=== PATIENT | female | born 1955 | race Caucasian/White ===

== ENCOUNTER 2020-12-26 12:24 | Inpatient (IN) ==
[2020-12-26] MEDS ORDERED: DEXAMETHASONE 10 MG/ML VIAL IV ONE (12:57)
--- NOTE | 2020-12-26 13:01 | Emergency Department Note ---
SOB HPI General Chief Complaint: Shortness of Breath/Dyspnea Stated Complaint: SOB Time Seen by Provider: 12/26/20 12:34 Source: patient Mode of arrival: ambulatory Limitations: no limitations History of Present Illness HPI Narrative: Narrative: Previously healthy 65 yo F w/ recent Dx of COVID19 p/w SOB. She reports that she fell ill around the first of the month and since then has had constant SOB, which is worsened by exertion, relieved by rest, but has steadily progressed. Today she comes in because her home O2 monitor was reading low. She also notes a dry cough, fever, chills, malaise, loss of taste. She was seen here previously this month w/ a Dx of COVID19. Related Data Home Medications Medication Instructions Recorded Confirmed No Known Home Meds 12/26/20 12/26/20 Allergies Allergy/AdvReac Type Severity Reaction Status Date / Time Penicillins Allergy Intermediate Hives Verified 12/26/20 12:27 Review of Systems ROS ROS Narrative: Narrative: All systems ED: reviewed and negative except as stated. [facility] Narrative Patient History Narrative: Narrative: Medical/Surgical/Family History All Active Problems (Updated 12/26/20 @ 15:55 by Ollie Newton MD) Acute respiratory failure with hypoxia (Acute) COVID-19 (Acute) Acute dyspnea (Acute) Pneumonia due to 2019 novel coronavirus (Acute) Social History Smoking Status: Never smoker Alcohol Intake Frequency: does not drink Substance Use: does not use Exam Narrative Narrative: Narrative: General Limitations: no limitations General appearance: Present alert and in no apparent distress Head Head: Present atraumatic and normocephalic ENT ENT: Present normal oropharynx and mucous membranes moist Chest Chest: Present normal inspection and symmetric chest wall rise Respiratory Respiratory: Present normal lung sounds bilaterally; Absent respiratory distress, rales/crackles, wheezes and stridor Cardiovascular Cardiovascular: Present regular rate, normal rhythm, +S1, +S2 and other (2+ B/L radial pulses); Absent systolic murmur and diastolic murmur Adbominal Abdominal: Present soft and normal bowel sounds; Absent distention and tenderness Extremities Extremities: Absent pedal edema Neurological Neurological: Present alert and oriented X3 Psychiatric Psychiatric: Present normal affect Skin Skin: Present warm (WNL) and dry Course Vital Signs Vital signs: Vital Signs Temperature 98.9 F 12/26/20 12:24 Pulse Rate 103 H 12/26/20 12:24 Respiratory Rate 20 12/26/20 12:24 Blood Pressure 122/75 12/26/20 12:24 Pulse Oximetry (%) 89 L 12/26/20 12:24 Temperature 98.4 F 12/26/20 16:24 Pulse Rate 94 H 12/26/20 16:24 Respiratory Rate 20 12/26/20 16:24 Blood Pressure 125/80 12/26/20 16:24 Pulse Oximetry (%) 94 12/26/20 16:24 MDM MDM Narrative Medical decision making narrative: Narrative: 65 yo F w/ recent Dx of COVID19 p/w ongoing SOB. DDX - COVID19, ARDS, PE, EDISON Pt presented w/ hypoxia, w/ RA sats in the 80s. Her COVID swab was already positive. CXR confirmed COVID19 PNA, and there was no evidence from XR and blood gas of ARDS. PE was also unlikely w/ no acute worsening and good response to NC. EDISON was not present on CMP. Overall evaluation was c/w hypoxia d/t COVID19 PNA. I started her on decadron in addition to NC, and she was accepted for admission by the hospitalist. Lab Data Result diagrams: 12/26/20 13:12 12/26/20 13:12 Labs: Lab Results 12/26/20 12/26/20 12/26/20 Range/Units 12:58 12:58 13:12 WBC 2.7 L (4.5-11.0) K/mcL RBC 4.10 (3.59-5.38) M/mcL Hgb 12.1 (11.2-15.7) g/dL Hct 36.4 (34.1-44.9) % MCV 88.8 (80.0-100.0) fL MCH 29.5 (26.0-34.0) pg MCHC 33.2 (31.0-36.0) g/dL RDW 12.4 (11.5-14.5) % Plt Count 246 (140-440) K/mcL MPV 9.6 (7.4-10.4) fL Neut % (Auto) 68.2 (38.0-78.0) % Lymph % (Auto) 24.1 (15.5-49.0) % [place] % (Auto) 7.3 (1.0-12.0) % Eos % (Auto) 0 (0.0-7.0) % Baso % (Auto) 0.4 (0.0-2.0) % Lymph # (Auto) 0.66 L (1.50-4.80) K/mcL [place] # (Auto) 0.20 (0.10-0.90) K/mcL Eos # (Auto) 0 (0.00-0.70) K/mcL Baso # (Auto) 0.01 (0.00-0.30) K/mcL Absolute Neutrophils 1.87 (1.80-8.00) K/mcL PT 13.1 (11.9-14.5) sec INR 1.0 (0.9-1.1) Fibrinogen 458 H (200-400) mg/dL D-Dimer 0.87 H (0.27-0.50) ug/mL ABG Methemoglobin (0.4-1.5) % VBG pH (7.32-7.42) U VBG pCO2 (41.0-51.0) mmHg VBG pO2 (25.0-40.0) mmHg VBG HCO3 (24.0-28.0) mmol/L VBG Total CO2 (25.0-29.0) mmol/L VBG O2 Saturation (40.0-70.0) % VBG Base Excess (-2-2) Carboxyhemoglobin (0.0-1.5) % THgb Total Hemoglobin (12.0-15.0) gm/Dl Sodium (133-145) mmol/L Potassium (3.3-5.1) mmol/L Chloride (96-108) mmol/L Carbon Dioxide (22-30) mmol/L Anion Gap (8.0-16.0) BUN (8-23) mg/dL Creatinine (0.6-1.1) mg/dL GFR Calculation Glucose (70-105) mg/dL Calcium (8.6-10.4) mg/dL Total Bilirubin (0.1-1.0) mg/dL AST (<32) U/L ALT (<40) U/L Alkaline Phosphatase (39-117) U/L Lactate Dehydrogenase 392 H (135-225) U/L C-Reactive Protein 1.20 H (0.03-0.80) mg/dL Total Protein (5.9-8.4) gm/dL Albumin (3.2-5.2) gm/dL Globulin (2.2-3.7) gm/dL Albumin/Globulin Ratio (1.0-2.3) 12/26/20 12/26/20 Range/Units 13:12 13:12 WBC (4.5-11.0) K/mcL RBC (3.59-5.38) M/mcL Hgb (11.2-15.7) g/dL Hct (34.1-44.9) % MCV (80.0-100.0) fL MCH (26.0-34.0) pg MCHC (31.0-36.0) g/dL RDW (11.5-14.5) % Plt Count (140-440) K/mcL MPV (7.4-10.4) fL Neut % (Auto) (38.0-78.0) % Lymph % (Auto) (15.5-49.0) % [place] % (Auto) (1.0-12.0) % Eos % (Auto) (0.0-7.0) % Baso % (Auto) (0.0-2.0) % Lymph # (Auto) (1.50-4.80) K/mcL [place] # (Auto) (0.10-0.90) K/mcL Eos # (Auto) (0.00-0.70) K/mcL Baso # (Auto) (0.00-0.30) K/mcL Absolute Neutrophils (1.80-8.00) K/mcL PT (11.9-14.5) sec INR (0.9-1.1) Fibrinogen (200-400) mg/dL D-Dimer (0.27-0.50) ug/mL ABG Methemoglobin 0.3 L (0.4-1.5) % VBG pH 7.41 (7.32-7.42) U VBG pCO2 42.6 (41.0-51.0) mmHg VBG pO2 32.5 (25.0-40.0) mmHg VBG HCO3 26.3 (24.0-28.0) mmol/L VBG Total CO2 27.6 (25.0-29.0) mmol/L VBG O2 Saturation 55.6 (40.0-70.0) % VBG Base Excess 1 (-2-2) Carboxyhemoglobin 6.1 H (0.0-1.5) % THgb Total Hemoglobin 12.1 (12.0-15.0) gm/Dl Sodium 132 L (133-145) mmol/L Potassium 3.6 (3.3-5.1) mmol/L Chloride 96 (96-108) mmol/L Carbon Dioxide 25 (22-30) mmol/L Anion Gap 11.0 (8.0-16.0) BUN 7 L (8-23) mg/dL Creatinine 0.9 (0.6-1.1) mg/dL GFR Calculation 67 Glucose 120 H (70-105) mg/dL Calcium 8.3 L (8.6-10.4) mg/dL Total Bilirubin 0.5 (0.1-1.0) mg/dL AST 69 H (<32) U/L ALT 50 H (<40) U/L Alkaline Phosphatase 55 (39-117) U/L Lactate Dehydrogenase (135-225) U/L C-Reactive Protein (0.03-0.80) mg/dL Total Protein 6.6 (5.9-8.4) gm/dL Albumin 3.8 (3.2-5.2) gm/dL Globulin 2.8 (2.2-3.7) gm/dL Albumin/Globulin Ratio 1.4 (1.0-2.3) EKG Data EKG #1: EKG attestation: Yes I reviewed and interpreted this EKG. and Yes There are no EKG findings of acute coronary syndrome EKG results narrative: Sinus rate of 84, normal NV, QRS, QT/QTc intervals. No STEMI. No previous EKG for comparison. Discharge Plan Patient/Caregiver Discharge Instructions Pt seen by [facility]/PA only: No Clinical Impression: Acute dyspnea, Pneumonia due to 2019 novel coronavirus Patient Disposition: Xfer As Inpt ([facility]) Condition: Fair Discharge Date/Time: 12/26/20 16:20
--- NOTE | 2020-12-26 13:22 | XRay Report ---
INDICATION: chest pain TECHNIQUE: AP upright chest x-ray COMPARISON: None FINDINGS: Lungs:There are bilateral pulmonary parenchymal infiltrates. These are interstitial in appearance. Appearance is consistent with atypical pneumonia and covid pneumonia should be considered. Correlation and follow-up radiographs recommended Heart, vascular:No significant cardiomegaly. Pulmonary vascularity is normal. No pulmonary edema or pulmonary congestion Mediastinum, za:No mediastinal widening. No hilar mass Pleura:No pleural fluid. No pleural-based mass or calcification Skeletal:Negative. IMPRESSION: 1. Bilateral pulmonary parenchymal infiltrates consistent with pneumonia 2. Covid pneumonia is likely Interpreted and Authenticated by: Kirk Ingram 12/26/20
[2020-12-26 13:49] LABS: ABG Methemoglobin 0.3 % (0.4-1.5); Total Hemoglobin 12.1 gm/Dl (12.0-15.0); VBG Base Excess 1 (-2-2); VBG HCO3 26.3 mmol/L (24.0-28.0); VBG Oxygen Saturation 55.6 % (40.0-70.0); VBG PCO2 42.6 mmHg (41.0-51.0); VBG PH 7.41 U (7.32-7.42); VBG PO2 32.5 mmHg (25.0-40.0); VBG Total CO2 27.6 mmol/L (25.0-29.0)
[2020-12-26 13:56] LABS: Basophils # (Auto) 0.01 K/mcL (0.00-0.30); Basophils % (Auto) 0.4 % (0.0-2.0); Eosinophils # (Auto) 0 K/mcL (0.00-0.70); Eosinophils % (Auto) 0 % (0.0-7.0); Hematocrit 36.4 % (34.1-44.9); Hemoglobin 12.1 g/dL (11.2-15.7); Lymphocytes # (Auto) 0.66 K/mcL (1.50-4.80); Lymphocytes % (Auto) 24.1 % (15.5-49.0); Mean Cell Volume 88.8 fL (80.0-100.0); Mean Corpuscular HGB Conc 33.2 g/dL (31.0-36.0); Mean Platelet Volume 9.6 fL (7.4-10.4); Monocytes % (Auto) 7.3 % (1.0-12.0); Neutrophils % (Auto) 68.2 % (38.0-78.0); Platelet Count 246 K/mcL (140-440); Red Cell Distribution Width 12.4 % (11.5-14.5); WBC 2.7 K/mcL (4.5-11.0)
[2020-12-26 14:15] LABS: ALT/SGPT 50 U/L (<40); AST/SGOT 69 U/L (<32); Albumin 3.8 gm/dL (3.2-5.2); Albumin/Globulin Ratio 1.4 (1.0-2.3); Alkaline Phosphatase 55 U/L (39-117); Bilirubin,Total 0.5 mg/dL (0.1-1.0); Blood Urea Nitrogen 7 mg/dL (8-23); Calcium 8.3 mg/dL (8.6-10.4); Carbon Dioxide 25 mmol/L (22-30); Chloride 96 mmol/L (96-108); Globulin 2.8 gm/dL (2.2-3.7); Glomerular Filtration Rate 67; Glucose 120 mg/dL (70-105)
--- NOTE | 2020-12-26 15:51 | Internal Med History&Physical ---
HPI History of Present Illness Patient information: Note initiated : 12/26/20 at 3:47 pm Service Date, if different from initiated Date: [] Patient: Kaivta Bowman a 65 y/o F admitted on for Shortness of breath. Chief Complaint: [CoVID pneumonia] History of present illness: Ms. Bowman is a 65 year old F no past medical history presenting with 11 days symptoms of shortness of breath, nonproductive cough, general body weakness. There was no prior similar episode. She denies any recent travel or sick contact. She is not vaccinated against Covid pneumonia. She first started having symptoms of shortness of breath, nonproductive cough, general body weakness, and shaking chills on December 16, 2020. She denies any fever or diaphoresis. She denies any respiratory wheezing or chest pain. She denies any GI symptoms such as nausea vomiting diarrhea or constipation's. She denies any muscle aches. She denies any change in her appetite. She was tested positive for Covid pneumonia on December 21, 2020. She presented to our ED today due to worsening of her symptomatologies. Vital signs significant for tachypnea with rate of breathing in the mid 20s, as well as oxygen desaturating to the mid to high 80s on room air. Labs significant for leukopenia with WBC 2.7. Serum sodium level mildly depressed at 132. Chest x-ray showing bilateral pulmonary infiltrates typical for Covid pneumonia. Constitutional Constitutional: Present chills and weakness; Absent excessive sweating, fatigue and fever(s) EENT Eyes: Absent blurry vision, change in vision, loss of vision and other visual disturbances Ears: Absent decreased hearing and tinnitus Nose, mouth and throat: Absent abnormal hearing, dry mouth, headache(s), nasal congestion and sore throat Cardiovascular Cardiovascular: Absent chest pain, chest pain at rest, edema, irregular heart rhythm and palpatations Respiratory Respiratory: Present cough and dyspnea; Absent wheezing Gastrointestinal Gastrointestinal: Absent abdominal pain, constipation, diarrhea, nausea and vomiting Musculoskeletal Musculoskeletal: Absent back pain, deformity, limited range of motion, muscle cramps, muscle weakness and numbness Integumentary Integumentary: Absent lesions, rash and wounds Neurological Neurological: Absent focal weakness, headache(s) and numbness Psychiatric Psychiatric: Absent anxiety, depression and hallucinations PFSH PFSH All Active Problems (Updated 12/26/20 @ 15:55 by Ollie Newton MD) Acute respiratory failure with hypoxia (Acute) COVID-19 (Acute) Acute dyspnea (Acute) Pneumonia due to 2019 novel coronavirus (Acute) Social History alcohol intake frequency: does not drink substance use type: does not use MEDS/ALLERGIES Home Medications and Allergies Home Medications Medication Instructions Recorded Confirmed Type No Known Home Meds 12/26/20 12/26/20 History Allergies Allergy/AdvReac Type Severity Reaction Status Date / Time Penicillins Allergy Intermediate Hives Verified 12/26/20 12:27 EXAM Constitutional Vitals: Temp Pulse Resp BP Pulse Ox 37.2 C 87 23 H 118/66 92 12/26/20 12:24 12/26/20 15:31 12/26/20 15:31 12/26/20 15:16 12/26/20 15:31 General appearance: cooperative and no acute distress Head Head exam: Present atraumatic and normocephalic Eye Eye exam: Present EOMI and PERRL ENT ENT exam: Present mucous membranes moist, normal exam and normal external ear exam Additional comments: nasal cannula Neck Neck exam: Present normal inspection; Absent lymphadenopathy, tenderness and thyromegaly Respiratory Respiratory exam: Present rhonchi; Absent accessory muscle use, respiratory distress and wheezes Cardiovascular Cardiovascular exam: Present normal rate and rhythm; Absent JVD GI/Abdominal GI/Abdominal exam: Present normal bowel sounds and soft; Absent organomegaly and tenderness Extremities Exam Extremities exam: Present full ROM, normal capillary refill and normal inspection; Absent tenderness Neurological Exam Neurological exam: Present alert, CN II-XII intact and oriented X3; Absent motor sensory deficit Psychiatric Psychiatric exam: Present normal affect and normal mood; Absent anxious and depressed Skin Skin exam: Present dry and intact DATA Data Completed and Pending Labs: Labs from last 24 hours 12/26/20 12/26/20 12/26/20 13:12 13:12 13:12 WBC 2.7 L RBC 4.10 Hgb 12.1 Hct 36.4 MCV 88.8 MCH 29.5 MCHC 33.2 RDW 12.4 Plt Count 246 MPV 9.6 Neut % (Auto) 68.2 Lymph % (Auto) 24.1 [place] % (Auto) 7.3 Eos % (Auto) 0 Baso % (Auto) 0.4 Lymph # (Auto) 0.66 L [place] # (Auto) 0.20 Eos # (Auto) 0 Baso # (Auto) 0.01 Absolute Neutrophils 1.87 ABG Methemoglobin 0.3 L VBG pH 7.41 VBG pCO2 42.6 VBG pO2 32.5 VBG HCO3 26.3 VBG Total CO2 27.6 VBG O2 Saturation 55.6 VBG Base Excess 1 Carboxyhemoglobin 6.1 H Total Hemoglobin 12.1 Sodium 132 L Potassium 3.6 Chloride 96 Carbon Dioxide 25 Anion Gap 11.0 BUN 7 L Creatinine 0.9 GFR Calculation 67 Glucose 120 H Calcium 8.3 L Total Bilirubin 0.5 AST 69 H ALT 50 H Alkaline Phosphatase 55 Total Protein 6.6 Albumin 3.8 Globulin 2.8 Albumin/Globulin Ratio 1.4 A/P Assessment and plan (1) Pneumonia due to 2019 novel coronavirus: Status: Acute (2) Acute respiratory failure with hypoxia: Status: Acute Narrative A/P Narrative: Assessment and Plans: 1. CoVID pneumonia with acute respiratory failure with hypoxia: Admit to inpatient med surg Isolation protocol: airborne and contact Supplemental oxygen titrate to achieve spo2>92% Lactic acid Inflammatory markers cbc w/ auto diff in the morning to trend WBC Tylenol PRN fever Robitussin DM PRN cough DuoNEB NEB PRN wheezing Dexamethasone Lovenox Patient refuses Remdesivir GI ppx: not currently indicated DVT ppx: Lovenox Code status: Full Prognosis: guarded Disposition: inpatient med surg telemetry Time Spent With Patient Time: Total time spent is greater than 50% in coordination of care (as documented) at patient's floor/unit and/or counseling patient: Total time spent with greater than 50% in coordination of care (as documented) at patient's floor/unit and/or counseling patient:: Greater than 35 minutes
[2020-12-26] MEDS ORDERED: IPRATROPIUM/ALBUTEROL 3 ML AMPUL.NEB NEB PRN (16:51)
[2020-12-26] MEDS ORDERED: ONDANSETRON 4 MG/2 ML VIAL IV PRN (16:51)
[2020-12-26] MEDS ORDERED: traZODone HCL 50 MG TABLET PO PRN (16:51)
[2020-12-26] MEDS ORDERED: BENZONATATE 100 MG CAPSULE PO PRN (16:56)
[2020-12-26 17:28] LABS: Lactate Dehydrogenase 392 U/L (135-225)
[2020-12-26 17:29] LABS: Prothrombin Time 13.1 sec (11.9-14.5)
--- NOTE | 2020-12-26 18:36 | EKG ---
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
[2020-12-26] MEDS: guaiFENesin/DEXTROMETHORPHAN ORAL SOL PO PRN (18:59)
[2020-12-26] MEDS: ACETAMINOPHEN 325 MG TABLET PO PRN (18:59)
[2020-12-26] MEDS: DOCUSATE SODIUM 100 MG CAPSULE PO SCH (22:57)
[2020-12-26] MEDS: 0.9 % SODIUM CHLORIDE 10 ML SYRINGE IV SCH (22:57)
[2020-12-26] MEDS: SENNOSIDES 1 TABLET PO SCH (22:57)
[2020-12-27] MEDS: ACETAMINOPHEN 325 MG TABLET PO PRN ×3 (03:00→19:44)
[2020-12-27] MEDS: guaiFENesin/DEXTROMETHORPHAN ORAL SOL PO PRN ×3 (03:00→19:45)
[2020-12-27] MEDS: 0.9 % SODIUM CHLORIDE 10 ML SYRINGE IV SCH ×2 (06:08→13:18)
[2020-12-27 06:55] LABS: Basophils # (Auto) 0.01 K/mcL (0.00-0.30); Basophils % (Auto) 0.4 % (0.0-2.0); Eosinophils # (Auto) 0 K/mcL (0.00-0.70); Eosinophils % (Auto) 0 % (0.0-7.0); Hematocrit 36.2 % (34.1-44.9); Hemoglobin 11.9 g/dL (11.2-15.7); Lymphocytes # (Auto) 0.65 K/mcL (1.50-4.80); Lymphocytes % (Auto) 23.7 % (15.5-49.0); Mean Cell Volume 89.8 fL (80.0-100.0); Mean Corpuscular HGB Conc 32.9 g/dL (31.0-36.0); Mean Platelet Volume 9.6 fL (7.4-10.4); Monocytes # (Auto) 0.27 K/mcL (0.10-0.90); Monocytes % (Auto) 9.9 % (1.0-12.0); Platelet Count 248 K/mcL (140-440); RBC 4.03 M/mcL (3.59-5.38); Red Cell Distribution Width 12.4 % (11.5-14.5); WBC 2.7 K/mcL (4.5-11.0)
[2020-12-27 07:16] LABS: ALT/SGPT 48 U/L (<40); AST/SGOT 57 U/L (<32); Albumin 3.5 gm/dL (3.2-5.2); Albumin/Globulin Ratio 1.2 (1.0-2.3); Alkaline Phosphatase 53 U/L (39-117); Bilirubin,Total 0.4 mg/dL (0.1-1.0); Blood Urea Nitrogen 12 mg/dL (8-23); Calcium 8.5 mg/dL (8.6-10.4); Carbon Dioxide 23 mmol/L (22-30); Chloride 98 mmol/L (96-108); Globulin 2.9 gm/dL (2.2-3.7); Glomerular Filtration Rate 77; Glucose 153 mg/dL (70-105)
[2020-12-27] MEDS: DOCUSATE SODIUM 100 MG CAPSULE PO SCH ×2 (08:11→19:45)
[2020-12-27] MEDS: ENOXAPARIN 40 MG/0.4 ML SYRINGE SQ SCH (08:11)
[2020-12-27] MEDS: DEXAMETHASONE 4 MG TABLET PO SCH (08:12)
--- NOTE | 2020-12-27 11:28 | Internal Med Progress Note ---
SUBJECTIVE Subjective Patient information: Note initiated : 12/27/20 at 11:25 am Service Date, if different from initiated Date: [] Patient: Kavita Bowman 65 y/o F admitted on 12/26/20 for Shortness of breath. Chief Complaint: [] Interval history: History of present illness: Ms. Bowman is a 65 year old F no past medical history presenting with 11 days symptoms of shortness of breath, nonproductive cough, general body weakness. There was no prior similar episode. She denies any recent travel or sick contact. She is not vaccinated against Covid pneumonia. She first started having symptoms of shortness of breath, nonproductive cough, general body weakness, and shaking chills on December 16, 2020. She denies any fever or diaphoresis. She denies any respiratory wheezing or chest pain. She denies any GI symptoms such as nausea vomiting diarrhea or constipation's. She denies any muscle aches. She denies any change in her appetite. She was tested positive for Covid pneumonia on December 21, 2020. She presented to our ED today due to worsening of her symptomatologies. Vital signs significant for tachypnea with rate of breathing in the mid 20s, as well as oxygen desaturating to the mid to high 80s on room air. Labs significant for leukopenia with WBC 2.7. Serum sodium level mildly depressed at 132. Chest x-ray showing bilateral pulmonary infiltrates typical for Covid pneumonia. 12/27: Afebrile overnight. Currently on 3L/min oxygen. Tolerating proning. c/o mild SOB. c/o nonproductive cough. Denies wheezing. Denies chest pain. c/o diaphoresis. Denies fever or chills. c/o general body weakness. Constitutional Vitals: Vital Signs Temp Pulse Resp BP Pulse Ox 36.6 C 69 20 109/71 92 12/27/20 11:12 12/27/20 11:12 12/27/20 11:12 12/27/20 11:12 12/27/20 11:12 Period Temp Pulse Resp BP Sys/[place] Pulse Ox Last 24 Hr 36.1 C-37.2 C 62-103 15-30 104-133/52-95 89-97 Intake and Output 12/26/20 12/27/20 12/27/20 21:59 05:59 13:59 Intake Total 400 600 Output Total 400 1000 500 Balance -400 -600 100 Weight 99.79 kg 99.79 kg Patient Weight 12/28/20 05:59 Weight 99.79 kg Intake & Output: Intake & Output 12/26/20 12/27/20 12/27/20 21:59 05:59 13:59 Intake Total 400 600 Output Total 400 1000 500 Balance -400 -600 100 Weight 99.79 kg 99.79 kg Intake: Oral 400 600 Output: Void Amount 400 1000 500 Other: Meal Breakfast Percent of Meal Consumed 75% Feeding Ability Independent Urine Appearance Cloudy Urine Color Dark Yellow Dark Yellow Dark Yellow # Bowel Movements 0 General appearance: cooperative, no acute distress and obese Head Head exam: Present atraumatic and normal inspection Eye Eye exam: Present normal appearance ENT ENT exam: Present mucous membranes moist, normal exam and normal external ear exam Additional comments: Nasal cannula Neck Neck exam: Present normal inspection Respiratory Respiratory exam: Present normal respiratory exam and rhonchi Cardiovascular Cardiovascular exam: Present normal rate and rhythm GI/Abdominal GI/Abdominal exam: Present normal bowel sounds Back Exam Back exam: Present normal inspection Neurological Exam Neurological exam: Present alert and oriented X3 Skin Skin exam: Present intact and warm OBJ DATA Labs CBC & Chem 7: 12/27/20 06:05 12/27/20 06:05 Labs: Abnormal Lab Results 12/27/20 12/27/20 12/26/20 06:05 06:05 13:12 WBC 2.7 L Lymph # (Auto) 0.65 L Fibrinogen D-Dimer ABG Methemoglobin 0.3 L Carboxyhemoglobin 6.1 H Sodium BUN Glucose 153 H Calcium 8.5 L Ferritin AST 57 H ALT 48 H Lactate Dehydrogenase C-Reactive Protein 12/26/20 12/26/20 12/26/20 13:12 13:12 12:58 WBC 2.7 L Lymph # (Auto) 0.66 L Fibrinogen D-Dimer ABG Methemoglobin Carboxyhemoglobin Sodium 132 L BUN 7 L Glucose 120 H Calcium 8.3 L Ferritin 1336.0 H AST 69 H ALT 50 H Lactate Dehydrogenase 392 H C-Reactive Protein 1.20 H 12/26/20 12:58 WBC Lymph # (Auto) Fibrinogen 458 H D-Dimer 0.87 H ABG Methemoglobin Carboxyhemoglobin Sodium BUN Glucose Calcium Ferritin AST ALT Lactate Dehydrogenase C-Reactive Protein Meds: Medications Acetaminophen (Acetaminophen 325 Mg Tablet) 650 mg PO Q6HP PRN; Protocol PRN Reason: Per Pain Protocol/Fever > 101 Last Admin: 12/27/20 08:11 Dose: 650 mg Documented by: Albuterol/Ipratropium (Ipratropium/Albuterol 3 Ml Ampul.Neb) 3 ml NEB Q4HRT PRN PRN Reason: Wheezing Benzonatate (Benzonatate 100 Mg Capsule) 200 mg PO TIDP PRN PRN Reason: Cough Dexamethasone (Dexamethasone 4 Mg Tablet) 6 mg PO DAILY [facility] Last Admin: 12/27/20 08:12 Dose: 6 mg Documented by: Docusate Sodium (Docusate Sodium 100 Mg Capsule) 100 mg PO BID [facility] Last Admin: 12/27/20 08:11 Dose: Not Given Documented by: Enoxaparin Sodium (Enoxaparin 40 Mg/0.4 Ml Syringe) 40 mg SQ DAILY [facility] Last Admin: 12/27/20 08:11 Dose: 40 mg Documented by: Guaifenesin (Guaifenesin/Dextromethorphan Oral Cathi) 10 ml PO Q4HP PRN PRN Reason: Cough Last Admin: 12/27/20 03:00 Dose: 10 ml Documented by: Ondansetron HCl (Ondansetron 4 Mg/2 Ml Vial) 4 mg IV Q6HP PRN PRN Reason: Nausea And Vomiting Senna (Sennosides 1 Tablet) 2 tab PO HS [facility] Last Admin: 12/26/20 22:57 Dose: Not Given Documented by: Sodium Chloride (0.9 % Sodium Chloride 10 Ml Syringe) 10 ml IV Q8 [facility] Last Admin: 12/27/20 06:08 Dose: 10 ml Documented by: Trazodone HCl (Trazodone Hcl 50 Mg Tablet) 25 mg PO HSP PRN PRN Reason: Insomnia ABG Interpretation ABG results: 12/26/20 13:12 ABG Methemoglobin 0.3 L VBG pH 7.41 VBG pCO2 42.6 VBG pO2 32.5 VBG HCO3 26.3 VBG Total CO2 27.6 VBG O2 Saturation 55.6 VBG Base Excess 1 A/P Assessment and plan (1) Pneumonia due to 2019 novel coronavirus: Status: Acute (2) Acute respiratory failure with hypoxia: Status: Acute Narrative A/P Narrative: Assessment and Plans: 1. CoVID pneumonia with acute respiratory failure with hypoxia: Stays in inpatient med surg Isolation protocol: airborne and contact Supplemental oxygen titrate to achieve spo2>92%, currently on 3L/min oxygen Lactic acid Inflammatory markers cbc w/ auto diff in the morning to trend WBC Tylenol PRN fever Robitussin DM PRN cough DuoNEB NEB PRN wheezing Dexamethasone Lovenox Patient refuses Remdesivir GI ppx: not currently indicated DVT ppx: Lovenox Code status: Full Prognosis: guarded Disposition: inpatient med surg telemetry Time Spent With Patient Time: Total time spent is greater than 50% in coordination of care (as documented) at patient's floor/unit and/or counseling patient: Total time spent with greater than 50% in coordination of care (as documented) at patient's floor/unit and/or counseling patient:: Greater than 35 minutes QUALITY VTE Deep Vein Thrombosis/Pulmonary Embolism Present on Admission: No
[2020-12-27] MEDS: SENNOSIDES 1 TABLET PO SCH (19:45)
[2020-12-28] MEDS: 0.9 % SODIUM CHLORIDE 10 ML SYRINGE IV SCH ×4 (00:12→21:54)
[2020-12-28 07:24] LABS: Basophils # (Auto) 0.01 K/mcL (0.00-0.30); Basophils % (Auto) 0.2 % (0.0-2.0); Eosinophils # (Auto) 0 K/mcL (0.00-0.70); Eosinophils % (Auto) 0 % (0.0-7.0); Hematocrit 37.9 % (34.1-44.9); Hemoglobin 12.6 g/dL (11.2-15.7); Lymphocytes # (Auto) 0.87 K/mcL (1.50-4.80); Mean Cell Volume 91.1 fL (80.0-100.0); Mean Corpuscular HGB Conc 33.2 g/dL (31.0-36.0); Mean Platelet Volume 9.5 fL (7.4-10.4); Monocytes # (Auto) 0.31 K/mcL (0.10-0.90); Monocytes % (Auto) 7.1 % (1.0-12.0); Neutrophils % (Auto) 72.7 % (38.0-78.0); Platelet Count 302 K/mcL (140-440); RBC 4.16 M/mcL (3.59-5.38); Red Cell Distribution Width 12.3 % (11.5-14.5); WBC 4.4 K/mcL (4.5-11.0)
[2020-12-28 07:29] LABS: ALT/SGPT 48 U/L (<40); AST/SGOT 49 U/L (<32); Albumin 3.5 gm/dL (3.2-5.2); Albumin/Globulin Ratio 1.2 (1.0-2.3); Alkaline Phosphatase 51 U/L (39-117); Bilirubin,Total 0.4 mg/dL (0.1-1.0); Blood Urea Nitrogen 14 mg/dL (8-23); Calcium 8.8 mg/dL (8.6-10.4); Carbon Dioxide 23 mmol/L (22-30); Chloride 100 mmol/L (96-108); Glomerular Filtration Rate 91; Glucose 129 mg/dL (70-105)
[2020-12-28] MEDS: DEXAMETHASONE 4 MG TABLET PO SCH (08:04)
[2020-12-28] MEDS: ENOXAPARIN 40 MG/0.4 ML SYRINGE SQ SCH (08:05)
[2020-12-28] MEDS: DOCUSATE SODIUM 100 MG CAPSULE PO SCH ×2 (08:05→21:54)
--- NOTE | 2020-12-28 09:52 | Discharge Summary ---
Discharge Provider Provider Patient information: Note initiated : 12/28/20 at 9:49 am Service Date, if different from initiated Date: [] Patient: Kavita Bowman a 65 y/o F admitted on 12/26/20 for Shortness of breath. Chief Complaint: [] Date of admission: 12/26/20 16:19 Discharge date: 12/28/20 Primary care physician: PCP No Attending physician on admission: Ollie Newton Consults: 12/26/20 Consult to Physician [CONS] Stat Comment: Consulting Provider: Ollie Newton Reason For Exam: Physician to Consult Attending physician on discharge: Ollie Martin Pui Discharge Meds Discharge Medications Home Medications dextromethorphan-guaifenesin 10 mg-100 mg/5 mL oral liquid (Robafen DM Cough) 10 ml PO Q4HP PRN 14 Days ml 12/28/20 [Rx Last Taken Unknown] COURSE Hospital Course Hospital course: History of present illness: Ms. Bowman is a 65 year old F no past medical history presenting with 11 days symptoms of shortness of breath, nonproductive cough, general body weakness. There was no prior similar episode. She denies any recent travel or sick contact. She is not vaccinated against Covid pneumonia. She first started having symptoms of shortness of breath, nonproductive cough, general body weakness, and shaking chills on December 16, 2020. She denies any fever or diaphoresis. She denies any respiratory wheezing or chest pain. She denies any GI symptoms such as nausea vomiting diarrhea or constipation's. She denies any muscle aches. She denies any change in her appetite. She was tested positive for Covid pneumonia on December 21, 2020. She presented to our ED today due to worsening of her symptomatologies. Vital signs significant for tachypnea with rate of breathing in the mid 20s, as well as oxygen desaturating to the mid to high 80s on room air. Labs significant for leukopenia with WBC 2.7. Serum sodium level mildly depressed at 132. Chest x-ray showing bilateral pulmonary infiltrates typical for Covid pneumonia. 12/27: Afebrile overnight. Currently on 3L/min oxygen. Tolerating proning. c/o mild SOB. c/o nonproductive cough. Denies wheezing. Denies chest pain. c/o diaphoresis. Denies fever or chills. c/o general body weakness. 12/28: Reached clinical stability. Discharged home with home oxygen prescribed to her. Instructed to follow up with PCP in 2 weeks. All questions were answered prior to patient being physically discharged. Discharge diagnosis: CoVID pneumonia Reason for admission: CoVID pneumonia Time Spent with Patient Time attestation: Total time spent providing and/or coordinating discharge services: Time spent: Less than 30 minutes EXAM Constitutional Vitals: Temp Pulse Resp BP Pulse Ox 36.7 C 85 20 134/82 91 12/28/20 07:24 12/28/20 05:49 12/28/20 07:24 12/28/20 07:24 12/28/20 07:24 General appearance: cooperative and no acute distress Head Head exam: Present atraumatic and normocephalic Eye Eye exam: Present EOMI and PERRL ENT ENT exam: Present mucous membranes moist, normal exam and normal external ear exam Additional comments: Nasal cannula in place Neck Neck exam: Present normal inspection; Absent lymphadenopathy, tenderness or thyromegaly Respiratory Respiratory exam: Present rhonchi; Absent accessory muscle use, respiratory distress or wheezes Cardiovascular Cardiovascular exam: Present normal rate and rhythm; Absent JVD GI/Abdominal GI/Abdominal exam: Present normal bowel sounds and soft; Absent organomegaly or tenderness Extremities Exam Extremities exam: Present full ROM, normal capillary refill and normal inspection; Absent tenderness Neurological Exam Neurological exam: Present alert, CN II-XII intact and oriented X3; Absent motor sensory deficit Psychiatric Psychiatric exam: Present normal affect and normal mood; Absent anxious or depressed Skin Skin exam: Present dry and intact Discharge Data Data Completed and Pending Labs on day of discharge: Labs from last 24 hours 12/28/20 12/28/20 06:04 06:04 WBC 4.4 L RBC 4.16 Hgb 12.6 Hct 37.9 MCV 91.1 MCH 30.3 MCHC 33.2 RDW 12.3 Plt Count 302 MPV 9.5 Neut % (Auto) 72.7 Lymph % (Auto) 20.0 [place] % (Auto) 7.1 Eos % (Auto) 0 Baso % (Auto) 0.2 Lymph # (Auto) 0.87 L [place] # (Auto) 0.31 Eos # (Auto) 0 Baso # (Auto) 0.01 Absolute Neutrophils 3.16 Sodium 136 Potassium 3.7 Chloride 100 Carbon Dioxide 23 Anion Gap 13.0 BUN 14 Creatinine 0.7 GFR Calculation 91 Glucose 129 H Calcium 8.8 Magnesium 2.0 Total Bilirubin 0.4 AST 49 H ALT 48 H Alkaline Phosphatase 51 Total Protein 6.5 Albumin 3.5 Globulin 3.0 Albumin/Globulin Ratio 1.2 Preliminary micro results at discharge 12/26/20 17:07 Blood Culture - Preliminary Blood 12/26/20 17:07 Blood Culture - Preliminary Blood Discharge Plan Patient/Caregiver Discharge Instructions Activity: increase activity as tolerated Diet: Regular Diet Prescriptions: New dextromethorphan-guaifenesin [Robafen DM Cough] 10-100 mg/5 mL Liquid 10 ml PO Q4HP PRN (Reason: Cough) 14 Days 0RF Follow Up Plan Follow up with: PCP, PCP [Other] (f/u with PCP in 2 weeks) No,PCP [Primary Care Provider] - Patient Disposition: Home, Self-Care Prognosis: Fair Rehab Potential: Good I certify that the patient requires SNF services: No Overall status at discharge: patient is progressing back to baseline Discharge Orders: Discharge Order (Routine); Ordered 12/28/20 Ordered By: Ollie ABREU VTE Deep Vein Thrombosis/Pulmonary Embolism Present on Admission: No
--- NOTE | 2020-12-28 11:19 | Internal Med Progress Note ---
SUBJECTIVE Subjective Patient information: Note initiated : 12/28/20 at 11:16 am Service Date, if different from initiated Date: [] Patient: Kavita Bowman a 65 y/o F admitted on 12/26/20 for Shortness of breath. Chief Complaint: [] Interval history: History of present illness: Ms. Bowman is a 65 year old F no past medical history presenting with 11 days symptoms of shortness of breath, nonproductive cough, general body weakness. There was no prior similar episode. She denies any recent travel or sick contact. She is not vaccinated against Covid pneumonia. She first started having symptoms of shortness of breath, nonproductive cough, general body weakness, and shaking chills on December 16, 2020. She denies any fever or diaphoresis. She denies any respiratory wheezing or chest pain. She denies any GI symptoms such as nausea vomiting diarrhea or constipation's. She denies any muscle aches. She denies any change in her appetite. She was tested positive for Covid pneumonia on December 21, 2020. She presented to our ED today due to worsening of her symptomatologies. Vital signs significant for tachypnea with rate of breathing in the mid 20s, as well as oxygen desaturating to the mid to high 80s on room air. Labs significant for leukopenia with WBC 2.7. Serum sodium level mildly depressed at 132. Chest x-ray showing bilateral pulmonary infiltrates typical for Covid pneumonia. 12/27: Afebrile overnight. Currently on 3L/min oxygen. Tolerating proning. c/o mild SOB. c/o nonproductive cough. Denies wheezing. Denies chest pain. c/o diaphoresis. Denies fever or chills. c/o general body weakness. 12/28: Afebrile overnight. Currently on 3L/min oxygen. Tolerating proning. c/o mild SOB. c/o nonproductive cough. Denies wheezing. Denies chest pain. c/o diaphoresis. Denies fever or chills. c/o general body weakness. Constitutional Vitals: Vital Signs Temp Pulse Resp BP Pulse Ox 36.7 C 85 20 134/82 91 12/28/20 07:24 12/28/20 05:49 12/28/20 07:24 12/28/20 07:24 12/28/20 07:24 Period Temp Pulse Resp BP Sys/[place] Pulse Ox Last 24 Hr 36.4 C-36.8 C 64-85 16-20 123-142/81-84 91-93 Intake and Output 12/27/20 12/28/20 12/28/20 21:59 05:59 13:59 Intake Total 400 200 Output Total 850 350 Balance -450 -150 Weight 96.026 kg Intake & Output: Intake & Output 12/27/20 12/28/20 12/28/20 21:59 05:59 13:59 Intake Total 400 200 Output Total 850 350 Balance -450 -150 Weight 96.026 kg Intake: Oral 400 200 Output: Void Amount 850 350 Other: Urine Appearance Cloudy Cloudy Urine Color Dark Yellow Dark Yellow # Voids 2 General appearance: cooperative and no acute distress Head Head exam: Present atraumatic and normal inspection Eye Eye exam: Present normal appearance ENT ENT exam: Present mucous membranes moist, normal exam and normal external ear exam Additional comments: Nasal cannula in place Neck Neck exam: Present normal inspection Respiratory Respiratory exam: Present normal respiratory exam and rhonchi; Absent wheezes Cardiovascular Cardiovascular exam: Present normal rate and rhythm GI/Abdominal GI/Abdominal exam: Present normal bowel sounds Back Exam Back exam: Present normal inspection Neurological Exam Neurological exam: Present alert and oriented X3 Skin Skin exam: Present intact and warm OBJ DATA Labs CBC & Chem 7: 12/28/20 06:04 12/28/20 06:04 Labs: Abnormal Lab Results 12/28/20 12/28/20 12/27/20 06:04 06:04 06:05 WBC 4.4 L Lymph # (Auto) 0.87 L Fibrinogen D-Dimer ABG Methemoglobin Carboxyhemoglobin Sodium BUN Glucose 129 H 153 H Calcium 8.5 L Ferritin AST 49 H 57 H ALT 48 H 48 H Lactate Dehydrogenase C-Reactive Protein 12/27/20 12/26/20 12/26/20 06:05 13:12 13:12 WBC 2.7 L Lymph # (Auto) 0.65 L Fibrinogen D-Dimer ABG Methemoglobin 0.3 L Carboxyhemoglobin 6.1 H Sodium 132 L BUN 7 L Glucose 120 H Calcium 8.3 L Ferritin AST 69 H ALT 50 H Lactate Dehydrogenase C-Reactive Protein 12/26/20 12/26/20 12/26/20 13:12 12:58 12:58 WBC 2.7 L Lymph # (Auto) 0.66 L Fibrinogen 458 H D-Dimer 0.87 H ABG Methemoglobin Carboxyhemoglobin Sodium BUN Glucose Calcium Ferritin 1336.0 H AST ALT Lactate Dehydrogenase 392 H C-Reactive Protein 1.20 H Meds: Medications Acetaminophen (Acetaminophen 325 Mg Tablet) 650 mg PO Q6HP PRN; Protocol PRN Reason: Per Pain Protocol/Fever > 101 Last Admin: 12/27/20 19:44 Dose: 650 mg Documented by: Albuterol/Ipratropium (Ipratropium/Albuterol 3 Ml Ampul.Neb) 3 ml NEB Q4HRT PRN PRN Reason: Wheezing Benzonatate (Benzonatate 100 Mg Capsule) 200 mg PO TIDP PRN PRN Reason: Cough Last Admin: 12/27/20 17:28 Dose: 200 mg Documented by: Dexamethasone (Dexamethasone 4 Mg Tablet) 6 mg PO DAILY [facility] Last Admin: 12/28/20 08:04 Dose: 6 mg Documented by: Docusate Sodium (Docusate Sodium 100 Mg Capsule) 100 mg PO BID [facility] Last Admin: 12/28/20 08:05 Dose: 100 mg Documented by: Enoxaparin Sodium (Enoxaparin 40 Mg/0.4 Ml Syringe) 40 mg SQ DAILY [facility] Last Admin: 12/28/20 08:05 Dose: 40 mg Documented by: Guaifenesin (Guaifenesin/Dextromethorphan Oral Cathi) 10 ml PO Q4HP PRN PRN Reason: Cough Last Admin: 12/27/20 19:45 Dose: 10 ml Documented by: Ondansetron HCl (Ondansetron 4 Mg/2 Ml Vial) 4 mg IV Q6HP PRN PRN Reason: Nausea And Vomiting Senna (Sennosides 1 Tablet) 2 tab PO HS [facility] Last Admin: 12/27/20 19:45 Dose: Not Given Documented by: Sodium Chloride (0.9 % Sodium Chloride 10 Ml Syringe) 10 ml IV Q8 [facility] Last Admin: 12/28/20 04:59 Dose: 10 ml Documented by: Trazodone HCl (Trazodone Hcl 50 Mg Tablet) 25 mg PO HSP PRN PRN Reason: Insomnia ABG Interpretation ABG results: 12/26/20 13:12 ABG Methemoglobin 0.3 L VBG pH 7.41 VBG pCO2 42.6 VBG pO2 32.5 VBG HCO3 26.3 VBG Total CO2 27.6 VBG O2 Saturation 55.6 VBG Base Excess 1 A/P Assessment and plan (1) Pneumonia due to 2019 novel coronavirus: Status: Acute (2) Acute respiratory failure with hypoxia: Status: Acute Narrative A/P Narrative: Assessment and Plans: 1. CoVID pneumonia with acute respiratory failure with hypoxia: Stays in inpatient med surg Isolation protocol: airborne and contact Supplemental oxygen titrate to achieve spo2>92%, currently on 3L/min oxygen Lactic acid Inflammatory markers cbc w/ auto diff in the morning to trend WBC Tylenol PRN fever Robitussin DM PRN cough DuoNEB NEB PRN wheezing Dexamethasone Lovenox Patient refuses Remdesivir GI ppx: not currently indicated DVT ppx: Lovenox Code status: Full Prognosis: guarded Disposition: inpatient med surg telemetry Time Spent With Patient Time: Total time spent is greater than 50% in coordination of care (as documented) at patient's floor/unit and/or counseling patient: Total time spent with greater than 50% in coordination of care (as documented) at patient's floor/unit and/or counseling patient:: 25 - 35 minutes QUALITY VTE Deep Vein Thrombosis/Pulmonary Embolism Present on Admission: No
[2020-12-28] MEDS: guaiFENesin/DEXTROMETHORPHAN ORAL SOL PO PRN (19:35)
[2020-12-28] MEDS: ACETAMINOPHEN 325 MG TABLET PO PRN (21:54)
[2020-12-28] MEDS: SENNOSIDES 1 TABLET PO SCH (21:54)
[2020-12-29] MEDS: 0.9 % SODIUM CHLORIDE 10 ML SYRINGE IV SCH (04:05)
[2020-12-29 06:58] LABS: Basophils # (Auto) 0.01 K/mcL (0.00-0.30); Basophils % (Auto) 0.2 % (0.0-2.0); Eosinophils # (Auto) 0 K/mcL (0.00-0.70); Eosinophils % (Auto) 0 % (0.0-7.0); Hematocrit 37.5 % (34.1-44.9); Hemoglobin 12.2 g/dL (11.2-15.7); Lymphocytes # (Auto) 1.16 K/mcL (1.50-4.80); Lymphocytes % (Auto) 26.7 % (15.5-49.0); Mean Cell Volume 91.9 fL (80.0-100.0); Mean Corpuscular HGB Conc 32.5 g/dL (31.0-36.0); Mean Platelet Volume 9.5 fL (7.4-10.4); Monocytes % (Auto) 9.2 % (1.0-12.0); Neutrophils % (Auto) 63.9 % (38.0-78.0); Platelet Count 309 K/mcL (140-440); RBC 4.08 M/mcL (3.59-5.38); Red Cell Distribution Width 12.4 % (11.5-14.5); WBC 4.3 K/mcL (4.5-11.0)
[2020-12-29 07:58] LABS: ALT/SGPT 44 U/L (<40); AST/SGOT 38 U/L (<32); Albumin 3.3 gm/dL (3.2-5.2); Albumin/Globulin Ratio 1.1 (1.0-2.3); Alkaline Phosphatase 52 U/L (39-117); Bilirubin,Total 0.4 mg/dL (0.1-1.0); Blood Urea Nitrogen 17 mg/dL (8-23); Calcium 8.6 mg/dL (8.6-10.4); Carbon Dioxide 24 mmol/L (22-30); Chloride 101 mmol/L (96-108); Globulin 2.9 gm/dL (2.2-3.7); Glomerular Filtration Rate 77; Glucose 112 mg/dL (70-105)
[2020-12-29] MEDS: ENOXAPARIN 40 MG/0.4 ML SYRINGE SQ SCH (08:45)
[2020-12-29] MEDS: DOCUSATE SODIUM 100 MG CAPSULE PO SCH (08:45)
[2020-12-29] MEDS: DEXAMETHASONE 4 MG TABLET PO SCH (08:46)
--- NOTE | 2020-12-29 09:57 | Discharge Summary ---
Discharge Provider Provider Patient information: Note initiated : 12/29/20 at 9:54 am Service Date, if different from initiated Date: [] Patient: Kavita Bowman a 65 y/o F admitted on 12/26/20 for Shortness of breath. Chief Complaint: [CoVID pneumonia] Date of admission: 12/26/20 16:19 Discharge date: 12/29/20 Primary care physician: PCP No Attending physician on admission: Ollie Newton Consults: 12/26/20 Consult to Physician [CONS] Stat Comment: Consulting Provider: Ollie Newton Reason For Exam: Physician to Consult Attending physician on discharge: Ollie Martin Pui Discharge Meds Discharge Medications Home Medications dextromethorphan-guaifenesin 10 mg-100 mg/5 mL oral liquid (Robafen DM Cough) 10 ml PO Q4HP PRN 14 Days ml 12/28/20 [Rx Last Taken Unknown] COURSE Hospital Course Hospital course: History of present illness: Ms. Bowman is a 65 year old F no past medical history presenting with 11 days symptoms of shortness of breath, nonproductive cough, general body weakness. There was no prior similar episode. She denies any recent travel or sick contact. She is not vaccinated against Covid pneumonia. She first started having symptoms of shortness of breath, nonproductive cough, general body weakness, and shaking chills on December 16, 2020. She denies any fever or diaphoresis. She denies any respiratory wheezing or chest pain. She denies any GI symptoms such as nausea vomiting diarrhea or constipation's. She denies any muscle aches. She denies any change in her appetite. She was tested positive for Covid pneumonia on December 21, 2020. She presented to our ED today due to worsening of her symptomatologies. Vital signs significant for tachypnea with rate of breathing in the mid 20s, as well as oxygen desaturating to the mid to high 80s on room air. Labs significant for leukopenia with WBC 2.7. Serum sodium level mildly depressed at 132. Chest x-ray showing bilateral pulmonary infiltrates typical for Covid pneumonia. 12/27: Afebrile overnight. Currently on 3L/min oxygen. Tolerating proning. c/o mild SOB. c/o nonproductive cough. Denies wheezing. Denies chest pain. c/o diaphoresis. Denies fever or chills. c/o general body weakness. 12/28: Still on 3L/min supplemental oxygen. Tolerating proning. c/o mild SOB. c/o nonproductive cough. Denies wheezing. Denies chest pain. c/o diaphoresis. Denies fever or chills. c/o general body weakness. 12/29: Reached clinical stability. Discharged home with home oxygen prescribed to her. Instructed to follow up with PCP in 2 weeks. All questions were answered prior to patient being physically discharged. Discharge diagnosis: CoVID pneumonia Time Spent with Patient Time attestation: Total time spent providing and/or coordinating discharge services: Time spent: Less than 30 minutes EXAM Constitutional Vitals: Temp Pulse Resp BP Pulse Ox 36.7 C 56 L 18 130/78 91 12/29/20 07:46 12/29/20 07:46 12/29/20 07:46 12/29/20 07:46 12/29/20 07:46 General appearance: cooperative and no acute distress Head Head exam: Present atraumatic and normocephalic Eye Eye exam: Present EOMI and PERRL ENT ENT exam: Present mucous membranes moist, normal exam and normal external ear exam Additional comments: supplemental oxygen in place Neck Neck exam: Present normal inspection; Absent lymphadenopathy, tenderness or thyromegaly Respiratory Respiratory exam: Present rhonchi; Absent accessory muscle use, respiratory distress or wheezes Cardiovascular Cardiovascular exam: Present normal rate and rhythm; Absent JVD GI/Abdominal GI/Abdominal exam: Present normal bowel sounds and soft; Absent organomegaly or tenderness Extremities Exam Extremities exam: Present full ROM, normal capillary refill and normal inspection; Absent tenderness Neurological Exam Neurological exam: Present alert, CN II-XII intact and oriented X3; Absent motor sensory deficit Psychiatric Psychiatric exam: Present normal affect and normal mood; Absent anxious or depressed Skin Skin exam: Present dry and intact Discharge Data Data Completed and Pending Labs on day of discharge: Labs from last 24 hours 12/29/20 12/29/20 06:06 06:06 WBC 4.3 L RBC 4.08 Hgb 12.2 Hct 37.5 MCV 91.9 MCH 29.9 MCHC 32.5 RDW 12.4 Plt Count 309 MPV 9.5 Neut % (Auto) 63.9 Lymph % (Auto) 26.7 [place] % (Auto) 9.2 Eos % (Auto) 0 Baso % (Auto) 0.2 Lymph # (Auto) 1.16 L [place] # (Auto) 0.40 Eos # (Auto) 0 Baso # (Auto) 0.01 Absolute Neutrophils 2.77 Sodium 137 Potassium 3.6 Chloride 101 Carbon Dioxide 24 Anion Gap 12.0 BUN 17 Creatinine 0.8 GFR Calculation 77 Glucose 112 H Calcium 8.6 Magnesium 2.3 Total Bilirubin 0.4 AST 38 H ALT 44 H Alkaline Phosphatase 52 Total Protein 6.2 Albumin 3.3 Globulin 2.9 Albumin/Globulin Ratio 1.1 Preliminary micro results at discharge 12/26/20 17:07 Blood Culture - Preliminary Blood 12/26/20 17:07 Blood Culture - Preliminary Blood Discharge Plan Patient/Caregiver Discharge Instructions Activity: increase activity as tolerated Diet: Regular Diet Instructions: Dextromethorphan (By mouth), COVID-19 (Coronavirus Disease 2019)(GEN) Activity Restrictions/Additional Instructions: Resume home diet as tolerated. Take all meals sitting up in a chair; sitting at 90 degrees to prevent aspira tion. Increase activity as tolerated. Maintain Covid precautions: Limit close contact with others Stay at least 6 feet away from others Stay in and sleep in a different room or area from others in your household Do not use public transportation Do not shake hands with others Do not share items Contact [facility] to arrange an appointment with Kole Mendoza for a hospital follow-up. It would be a good idea to establish care with a primary care physician Take all medication as directed. Your prescription is with your discharge paperwork. Take your prescription, insurance cards, and photo ID to [facility] maker your medication. Return to ER for fever, chills, uncontrolled pain, inability to urinate or have a bowel movement, nausea and/or vomiting, swelling, redness, signs of infection, shortness of breath, chest pain, return of symptoms, or other acute symptom This discharge packet is provided to you to help keep you informed about your care. We want to ensure you get everything you need when you go home. You will also be receiving a call from us in a few days to follow up with you and see how you are doing since your discharge. This gives us a chance to listen to any concerns you maybe experiencing since you were discharged or any additional needs you may have, as well as providing us feedback on your care experience. We strive to always provide excellent care and thank you for your feedback and for choosing [facility]. Prescriptions: New dextromethorphan-guaifenesin [Robafen DM Cough] 10-100 mg/5 mL Liquid 10 ml PO Q4HP PRN (Reason: Cough) 14 Days 0RF Follow Up Plan Follow up with: Kole Mendoza ARNP [Adv Reg Nurse Practitioner] - Patient Disposition: Home, Self-Care Prognosis: Fair Rehab Potential: Good I certify that the patient requires SNF services: No Overall status at discharge: patient is progressing back to baseline Discharge Orders: Discharge Order (Routine); Ordered 12/29/20 Ordered By: Ollie ABREU VTE Deep Vein Thrombosis/Pulmonary Embolism Present on Admission: No
== END 2020-12-29 12:20 | disposition home or self-care (01) | DRG 177 ==
LOC: ED 12:24 → MEDSUR 16:19
PROVIDERS: ADMIT Internal Medicine; ATTEND Internal Medicine